=== PATIENT | female | born 1985 | race Asian ===

== ENCOUNTER → 2019-08-04 12:05 | Outpatient (CLI) | payer OTHER, SELFPAY ==
--- NOTE | 2019-08-04 12:06 | DI.US.S_ITS ---
PROCEDURE: US OB >= 14 WEEKS FETUS INDICATIONS: ANATOMY OUTSIDE/PRIOR DATING DATA: Last menstrual period (LMP): 03/13/19. LMP-based estimated date of delivery (JAIR): 12/18/19. First dating scan (date and location): 08/04/19, this study.. Estimated date of delivery (JAIR) from first dating scan: 12/21/19.. TECHNIQUE: Real-time scanning was performed of the fetus, with image documentation and biometric measurements. Endovaginal scanning: Not needed for this study. COMPARISON: None. FINDINGS: General: A single living intrauterine gestation is present. Presentation: Vertex. Placenta: Placental position is posterior, without previa. Amniotic fluid index: 11.7 cm, normal range is 5-24 cm. heart rate: 137 beats per minute. Maternal cervical canal: 4.0 cm long. Normal lower limit is 2.5 cm. biometrics: Biparietal diameter: 4.8 cm, 20 weeks 3 days Head circumference: 18.1 cm, 20 weeks 4 days Abdominal circumference: 14.5 cm, 19 weeks 6 days Femur length: 3.1 cm, 19 weeks 4 days Estimated gestational age from initial scan: not applicable. Composite gestational age from present scan: 20 weeks 1 day Estimated weight and percentile: 313 g, 12 percentile Measurement variability for biometric dating: +/- 7 days from 14 weeks to 15 weeks 6 days gestation, +/- 10 days from 16 weeks to 21 weeks 6 days gestation, +/- 2 weeks from 22 weeks to 27 weeks 6 days gestation, +/- 3 weeks for 28 weeks gestation or later. weight reference: 4500 g or EFW >90/95% is considered macrosomia or large for gestational age. EFW <10% is small for gestational age. EFW 5% or less is considered intra-uterine growth restriction. Anatomic survey: Neuro: Ventricles are non-dilated at less than 10 mm. Cisterna magna is normal at 3-11 mm. Cerebellum is normal in size and morphology. Nuchal skin fold: Normal at less than 6 mm between 14-21 weeks gestational age. Face: Nose and lips, facial profile are normal. Spine: No evidence for spina bifida. Heart: 4-chambered heart is present, with normal ventricular outflow tracts. Diaphragm: Diaphragm is intact. Stomach: Left-sided stomach is present. Kidneys: No hydronephrosis. Normal is less than 5 mm in 2nd trimester, less than 7 mm in 3rd trimester. Cord: 3-vessel cord has orthotopic insertion. Bladder: Normal in size. Extremities: All 4 extremities identified. IMPRESSION: Appropriate interval growth, no anomaly seen. The delivery date is projected to be centered on 12/21/19. Dictated by: Ziggy Prara M.D. on 08/04/2019 at 14:32 Approved by: Ziggy Parra M.D. on 08/04/2019 at 14:35
== END ==
PROVIDERS: Visit Provider Specialist
DX: Z34.02 Encounter for supervision of normal first pregnancy, second trimester (principal); Z3A.20 20 weeks gestation of pregnancy
CPT/HCPCS: 76811

== ENCOUNTER → 2019-10-01 11:42 | Outpatient (CLI) | payer OTHER, SELFPAY ==
[2019-10-01 13:25] LABS: Hemoglobin 10.3 g/dL (12.0-16.0)
[2019-10-01 13:45] LABS: GTT (PREG) 1 Hour PP 50gm Dose 96 mg/dL (76-139)
== END ==
PROVIDERS: Referring Provider Specialist; Visit Provider Specialist
DX: Z34.02 Encounter for supervision of normal first pregnancy, second trimester (principal); Z3A.25 25 weeks gestation of pregnancy
CPT/HCPCS: 36415; 82950; 85014; 85018

== ENCOUNTER → 2019-11-22 08:17 | Outpatient (CLI) | payer OTHER, SELFPAY ==
[2019-11-23 07:55] LABS: Strep Grp B PCR NEG for Grp B Strep
== END ==
PROVIDERS: Visit Provider Specialist
DX: Z34.83 Encounter for supervision of other normal pregnancy, third trimester (principal); Z3A.36 36 weeks gestation of pregnancy
CPT/HCPCS: 87653

== ENCOUNTER 2019-12-19 09:53 | Observation (INO) | payer OTHER, SELFPAY ==
--- NOTE | 2019-12-19 14:14 | P.TNLD_ITS ---
Visit Information Visit Information Date of evaluation: 12/19/19 Primary OB Provider: Salome Adams On-call OB Provider: Jo Hernandez Reason for Evaluation: Yes non-stress test Comments/Additional reasons for admission: This patient is a 34yo @40+1 presenting for evaluation for labor after losing her mucus plug and with contractions q9 minutes. The patient reports good movement and no other complaints. She has had an uncomplicated . Vital Signs Vital Signs: 104/56, HR 73 PFSH Medical History Acne (Chronic ~1999) Asthma (Chronic ~1993) Chicken pox (Resolved ~1994) History of wrist sprain (Acute) Shoulder pain (Chronic ~2015) Surgical History History of dilatation and curettage (Acute) History of removal of skin mole (Acute) [place] teeth extracted (Acute) Family History Father Cardiovascular disease Hypertension History of high blood pressure Hyperlipidemia Grandfather Cardiovascular disease Hypertension Stroke Grandmother Diabetes mellitus Mother Asthma Adopted Brother Heart murmur Asthma History of heart disease Social History marital status: unmarried,living together household members: significant other pets and animals: No education level: college occupational status: employed current occupational exposures/hazards: No special jasbir needs: No leisure activities: exercise Smoking Status: Never smoker Review of Systems Constitutional Constitutional: Reports system reviewed and no additional complaints, except as documented Cardiovascular Cardiovascular: Reports system reviewed; no additional complaints, except as documented Respiratory Respiratory: Reports system reviewed and no additional complaints, except as documented Gastrointestinal Gastrointestinal: Reports system reviewed and no additional complaints, except as documented Genitourinary Genitourinary: Reports system reviewed and no additional complaints, except as documented Neurologic Neurologic: Reports system reviewed and no additional complaints, except as documented Evaluation Evaluation Baseline heart rate: 140 Contraction Frequency (minutes): 4 Category of Tracing: I Cervical dilation (cm): 1 Cervical effacement (%): 70 station: -2 Diagnosis, Plan/Disposition Plan/Disposition Plan: Home with latent labor precautions. OB Disposition: home
== END 2019-12-19 12:15 | disposition home or self-care (01) ==
PROVIDERS: Admitting Provider Obstetrics & Gynecology; PCP General Practice; Referring Provider Obstetrics & Gynecology; Visit Provider Obstetrics & Gynecology
DX: O48.0 Post-term pregnancy (principal); Z3A.40 40 weeks gestation of pregnancy
CPT/HCPCS: 59025; 59050; G0378; G0379

== ENCOUNTER 2019-12-19 15:06 | Inpatient (IN) | payer OTHER, SELFPAY ==
--- NOTE | 2019-12-19 15:20 | P.HPOB_ITS ---
OB HPI Date/Time Date of admission: 12/19/19 Date Patient Seen: 12/19/19 Time Patient Seen: 15:30 History of Present Condition Chief complaint: EVAL OF LABOR : 2 Para: 0 Estimated Date of Delivery: 12/18/19 Estimated Gestational Age (weeks): 40 Narrative: Gwen Mixon is a 34 year old @40+1 admitted in early labor, having made change from her cervical exam this morning, now anali q2 with scant bloody show. Reports decreased movement since prior visit. Denies ALVARADO, visual changes, SOB. 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 History of Present care: good care and number of visits (16) Dating criteria: LMP confirmed by 1st trimester US Ultrasounds: normal 1st trimester US and normal mid trimester US Obstetrical complications: none Medical complications: none Preadmission Labs Blood type: A (+) positive -: Antibody screen: negative, GBS status: negative, HBsAG: negative, HIV: negative and RPR/VDLR: negative -: Chlamydia screen: not detected and Gonorrhea screen: not detected -: Rubella: immune Integrated screen: negative 1 hr GTT: 96 Prior (ies) History: 12/2015: IAB, 8 weeks, D&C, uncomplicated Evaluation Evaluation Baseline heart rate: 140 Variability: Average (6-10) monitor accelerations: Present monitor decelerations: Absent Uterine Contraction Intensity: Moderate Category of Tracing: I Cervical dilation (cm): 3 Cervical effacement (%): 100 station: -2 [facility] Medical History Acne (Chronic ~1999) Asthma (Chronic ~1993) Chicken pox (Resolved ~1994) History of wrist sprain (Acute) Shoulder pain (Chronic ~2015) Surgical History History of dilatation and curettage (Acute) History of removal of skin mole (Acute) [place] teeth extracted (Acute) Family History Father Cardiovascular disease Hypertension History of high blood pressure Hyperlipidemia Grandfather Cardiovascular disease Hypertension Stroke Grandmother Diabetes mellitus Mother Asthma Adopted Brother Heart murmur Asthma History of heart disease Social History marital status: unmarried,living together household members: significant other pets and animals: No education level: college occupational status: employed current occupational exposures/hazards: No special jasbir needs: No leisure activities: exercise Smoking Status: Never smoker Meds Home Medications and Allergies Home Medications Medication Instructions Recorded Confirmed Type albuterol sulfate 90 mcg/actuation 1 inhalation INHALATION Q4-6H PRN 06/30/19 12/17/19 History breath activated powder inhaler,sensor loratadine 10 mg tablet 10 mg PO DAILY 06/30/19 12/17/19 History ondansetron 4 mg oral soluble film 4 mg PO Q8H 06/30/19 12/17/19 History prenat.vits,mukund,vhz-gfto-cardi 1 tab PO DAILY 06/30/19 12/17/19 History Allergies Allergy/AdvReac Type Severity Reaction Status Date / Time melon Allergy Itchy Verified 11/15/19 11:42 throat dog dander AdvReac Unknown Verified 11/15/19 11:42 Review of Systems Constitutional Constitutional: Reports system reviewed and no additional complaints, except as documented Cardiovascular Cardiovascular: Reports system reviewed; no additional complaints, except as documented Respiratory Respiratory: Reports system reviewed and no additional complaints, except as documented Gastrointestinal Gastrointestinal: Reports system reviewed and no additional complaints, except as documented Genitourinary Genitourinary: Reports system reviewed and no additional complaints, except as documented Neurologic Neurologic: Reports system reviewed and no additional complaints, except as documented Exam Vital Signs (past 8 hours): 121/74, HR 85 Const General: cooperative, healthy appearing and other (laboring) Resp Effort & Inspection: normal respiratory effort Auscultation: clear to auscultation bilaterally Cardio Rate: regular rate Rhythm: regular rhythm GI Palpation: soft and No tender Skin General: no rashes or lesions noted Objective Labs Result Diagrams: 12/19/19 15:30 Assessment and Plan Assessment and Plan Assessment and Plan narrative: This patient is admitted in early labor. She has made good change since this morning, and would like her epidural as soon as possible. OB labs will be drawn and the patient will receive an IV. Monitoring as per protocol, and covid testing to be expedited. - CBC, T&S, covid testing for patient and partner - cEFM, toco - epidural when feasible
[2019-12-19 15:52] LABS: Add Manual Diff / Slide Review NO; Basophils Absolute Auto 200 /uL (0-100); Basophils Percent Auto 0.9 % (0-2); Eosinophils Absolute Auto 0 /uL (0-450); Eosinophils Percent Auto 0.2 % (2-4); Hematocrit 33.6 % (36-46); Hemoglobin 10.6 g/dL (12.0-16.0); Lymphocytes Absolute Auto 1800 /uL (1100-4500); Lymphocytes Percent Auto 8.8 % (25-40); Mean Corpuscular HGB Conc 31.5 % (30-36); Mean Corpuscular Volume 69.8 fL (80-100); Monocytes Absolute Auto 1100 /uL (0-900); Monocytes Percent Auto 5.5 % (3-14); Neutrophils Absolute Auto 17600 /uL (1500-7000); Neutrophils Percent Auto 84.6 % (50-75); Platelet Count 429 X10^3/uL (150-400); Red Blood Cell Count 4.82 X10^6/uL (4.0-5.2); Red Cell Distribution Width 19.4 % (11.6-14.8); White Blood Cell Count 20.8 X10^3/uL (4.5-11.0)
[2019-12-19 16:11] LABS: Microcytosis 2+; Polychromasia 1+
[2019-12-19 17:00] LABS: COVID19 -Nasal RAPID Negative (Negative)
[2019-12-19 19:21] VITALS: BP 127/78
[2019-12-19 19:34] VITALS: BP 126/80
[2019-12-19] MEDS: OXYTOCIN PREMIX 30 UNIT/500 ML PLAST..BAG IV (20:03)
[2019-12-20] VITALS (7 sets, daily range): BP systolic 84–98; BP diastolic 47–54; PULSE 94–104; RESP 13–23; TEMP 37.4; O2SAT 97–100
--- NOTE | 2019-12-20 00:21 | P.OP.PRE_ITS ---
Pre-operative Note COVID-19 COVID-19 status: Negative Interval Note History & Physical reviewed/Exam performed by Physician: Yes Changes to H&P: Yes H&P completed within 30 days and has changed as indicated here:: Second-stage ar rest.
--- NOTE | 2019-12-20 00:22 | P.PN_ITS ---
Subjective Subjective Date Patient Seen: 12/20/19 Time Patient Seen: 00:22 Interval history: Patient is comfortable with epidural. Patient was complete at 9:00 pm. Due to the patient's epidural and lack of feeling and how high the baby was decision was made to wait an hour prior to beginning pushing. Patient pushed for 2 hours. An internal toco was placed because contractions were difficult to monitor. Pitocin could only be increased to 4 and then occasiona lly had to be turned off because of hyperstimulation. heart tones began having decreased variability with rare decelerations. The vertex was too high to attempt vacuum or forceps and decision was made to proceed with section. Exam Vital Signs (past 8 hours): - 12/19/19 19:21 12/19/19 19:34 Blood Pressure 127/78 126/80 Narrative Exam Narrative: Complete dilation with the fetus with transverse head and no descent past -1 after 2 hours of pushing. Objective Labs Result Diagrams: 12/19/19 15:30 Labs: Laboratory Results - last 24 hr 12/19/19 12/19/19 12/19/19 15:30 15:30 16:00 WBC 20.8 H RBC 4.82 Hgb 10.6 L Hct 33.6 L MCV 69.8 L MCH 22.0 L MCHC 31.5 RDW 19.4 H Plt Count 429 H Neut % (Auto) 84.6 H Lymph % (Auto) 8.8 L [place] % (Auto) 5.5 Eos % (Auto) 0.2 L Baso % (Auto) 0.9 Neut # (Auto) 46538 H Lymph # (Auto) 1800 [place] # (Auto) 1100 H Eos # (Auto) 0 Baso # (Auto) 200 H RBC Morphology See below Polychromasia 1+ H Microcytosis 2+ H COVID-19 PCR Negative Blood Type A Positive Antibody Screen Negative 12/19/19 16:06 WBC RBC Hgb Hct MCV MCH MCHC RDW Plt Count Neut % (Auto) Lymph % (Auto) [place] % (Auto) Eos % (Auto) Baso % (Auto) Neut # (Auto) Lymph # (Auto) [place] # (Auto) Eos # (Auto) Baso # (Auto) RBC Morphology Polychromasia Microcytosis COVID-19 PCR Cancelled Blood Type Antibody Screen Assessment & Plan Assessment and plan (1) Failure to progress in second stage of labor: Current visit: Yes Status: Acute Assessment & Plan narrative: Patient with failure to progress in 2nd stage planned section. Consent form was reviewed with the patient. Risk infection, bleeding enough to require a blood transfusion damage to internal structures such as bowel, bladder, ureters discussed with patient. Questions were answered and consent form signed COVID-19 COVID-19 status: Negative Result date/Date tested (Pos, Neg/Pending): 12/19/19
[2019-12-20] MEDS: CEFAZOLIN 2 GM/100 ML FROZ.PIGGY IV (01:08)
--- NOTE | 2019-12-20 01:19 | SUR.OPER ---
Supine on Padded OR bed, head on pillow, safety belt at thigh, arms secured on padded arm boards at <90 degrees abduction. Bump under right buttock. Legs uncrossed with pillow under knees, gel pad to heels, tape over blanket to lower legs.
--- NOTE | 2019-12-20 01:30 | SUR.OPER ---
FHT 136 POST EPIDURAL DOSING, VIABLE BABY BOY BORN @0129, CORD BLOOD AND PLACENTA WITH OB RN
[2019-12-20] MEDS: LACTATED RINGERS 1,000 ML 100 ML IV ×3 (01:35→14:33)
[2019-12-20] MEDS: ACETAMINOPHEN IV 1,000 MG/100 ML VIAL 400 MG IV (01:38)
--- NOTE | 2019-12-20 02:29 | P.OP_ITS ---
Operative Date/Time/Diagnoses Date of procedure: 12/20/19 Time of procedure: 02:29 Pre-op diagnosis: Second-stage arrest Post-op diagnosis: same Procedure & Clinicians Procedure: Primary low-transverse section Same procedure as scheduled: Yes Indications: Second-stage arrest Surgeon: Salome Adams Click Yes if Unassisted: Yes Anesthesia Type: Epidural Operative Notes Findings: Normal uterus, tubes, ovaries. Viable male weighing 7 lb 14 oz with Apgars of 8 9 Closure Type: primary Specimen(s): none sent Applied: catheter (Cornejo) Estimated Blood Loss (mL): 850 Blood products transfused: none Procedure in detail: The patient was brought to the operating room where she underwent a bolus in her epidural for anesthesia. She was placed in a supine position with a left lateral tilt. A Cornejo catheter was in place. Pulsatile stockings were placed and functional throughout the case. 2 g of Ancef were given IV prior to the incision. Warming was in place. The patient was prepped and draped in usual st erile fashion. A low transverse incision was made with a scalpel and the incision was carried down to the fascial layer which was incised transversely with scissors. The midline attachments are superiorly and inferiorly. Some bleeding was controlled Bovie. The rectus muscles were in the midline and the peritoneal incision was made with no damage to internal structures. The peritoneum was incised and superiorly and inferiorly. Bladder blade was placed and a bladder flap was developed and the bladder held away from the lower uterine segment. An incision was made in the uterus with the scalpel and the incision was extended with stretching. The head was elevated out of the abdomen and with fundal pressure the baby was delivered. The infant was bulb suctioned for clear fluid and handed off to the warmer. Cord blood was collected. The placenta delivered spontaneously with traction. The uterus was cleaned with clean laps. The uterine incision was closed in 2 layers of 0 chromic suture the first a running locking layer the second an imbricating layer. There was a extension of the incision down into the right vagina that was repaired. The bladder peritoneum was repaired with 2-0 Vicryl suture. The gutters were cleaned of any remaining fluids and ovaries and tubes were observed to be normal. Adequate hemostasis was noted. The perineum was closed with 2-0 Vicryl suture. The fascia layer was closed with 0 Vicryl suture with 2 stitches. The incision was irrigated and adequate hemostasis noted. The incision was closed with interrupted 3-0 Vicryl sutures and then a subcuticular stitch of 4-0 Vicryl suture. Steri-Strips were placed. The uterus was massaged to remove any clots. The patient went to recovery room in good condition. Counts of instruments and sponges were correct. Complications: none Post-operative Condition: stable Disposition: other ( Center) Plan for aftercare: Routine post section
--- NOTE | 2019-12-20 03:10 | SUR.PHASEI ---
0303 to room 1, bed down and locked, call light within reach, 2 receiving RNs, baby, and dad present. SCDs on. Pt awake, oriented, tolerated juice well. Denies dizziness/lightheadedness throughout PACU stay. Skin warm and dry, resp unlabored, pleasant, denies pain/nausea. Stable.
[2019-12-20] MEDS: DOCUSATE 250 MG CAPSULE PO (08:28)
[2019-12-20] MEDS: FERROUS GLUCONATE 324 MG TABLET PO (08:28)
[2019-12-20] MEDS: KETOROLAC 30 MG/ML VIAL IV ×3 (08:28→21:30)
--- NOTE | 2019-12-20 10:34 | PM.OBPN.1 ---
Subjective - OB <Jo Hernandez MD - Last Filed: 12/21/19 11:05> Subjective Patient comments: no complaints, pain well controlled and tolerating diet baby status: doing well feeding status: exclusively breast feeding Narrative: This patient is a 34yo P1 POD#0 s/p early AM pCS for second stage arrest. She is meeting postoperative goals appropriately given the recent CS, tolerating PO, with good pain control and moderate lochia. Patient reports feeling well with no other complaints obstetrical or otherwise. Date Patient Seen: 12/20/19 Time Patient Seen: 10:00 Exam <Jo Hernandez MD - Last Filed: 12/21/19 11:05> Vital Signs (past 8 hours): - 12/20/19 02:35 12/20/19 02:40 12/20/19 02:45 Pulse Rate 96 H 100 H 94 H Respiratory Rate 21 21 20 Blood Pressure 86/51 L 84/49 L 86/49 L Pulse Oximetry 98 97 97 12/20/19 02:50 12/20/19 02:55 Pulse Rate 98 H 98 H Respiratory Rate 23 13 Blood Pressure 91/47 L 92/47 L Pulse Oximetry 97 97 Oxygen Delivery Method Room Air Const General: cooperative, healthy appearing and comfortable Orientation: alert, awake and oriented x3 Resp Effort & Inspection: normal respiratory effort Auscultation: clear to auscultation bilaterally Cardio Rate: regular rate Rhythm: regular rhythm GI Palpation: soft and No tender Other: fundus firm, well below u. Aquacell dressing present with scant old blood, incision otherwise c/d/i. Skin General: no rashes or lesions noted Objective <Jo Hernandez MD - Last Filed: 12/21/19 11:05> Labs Result Diagrams: 12/19/19 15:30 Labs: Laboratory Results - last 24 hr 12/19/19 12/19/19 12/19/19 15:30 15:30 16:00 WBC 20.8 H RBC 4.82 Hgb 10.6 L Hct 33.6 L MCV 69.8 L MCH 22.0 L MCHC 31.5 RDW 19.4 H Plt Count 429 H Neut % (Auto) 84.6 H Lymph % (Auto) 8.8 L [place] % (Auto) 5.5 Eos % (Auto) 0.2 L Baso % (Auto) 0.9 Neut # (Auto) 56894 H Lymph # (Auto) 1800 [place] # (Auto) 1100 H Eos # (Auto) 0 Baso # (Auto) 200 H RBC Morphology See below Polychromasia 1+ H Microcytosis 2+ H COVID-19 PCR Negative Blood Type A Positive Antibody Screen Negative 12/19/19 16:06 WBC RBC Hgb Hct MCV MCH MCHC RDW Plt Count Neut % (Auto) Lymph % (Auto) [place] % (Auto) Eos % (Auto) Baso % (Auto) Neut # (Auto) Lymph # (Auto) [place] # (Auto) Eos # (Auto) Baso # (Auto) RBC Morphology Polychromasia Microcytosis COVID-19 PCR Cancelled Blood Type Antibody Screen Assessment & Plan <Jo Hernandez MD - Last Filed: 12/21/19 11:05> Assessment and Plan (1) Failure to progress in second stage of labor: Status: Acute Current Visit: Yes Plan day: 0 plan OB: routine postop care Comments: This patient is doing well, meeting postoperative goals appropriately. Plan is for voiding trial and ambulation later this afternoon. Routine postoperative care. CBC pending. Time Spent With Patient Time: Total time spent is greater than 50% in coordination of care (as documented) at patient's floor/unit and/or counseling patient: Time with patient: 25 - 35 minutes
[2019-12-21] MEDS: IBUPROFEN 600 MG TABLET PO ×2 (03:38→11:46)
[2019-12-21] MEDS: FERROUS GLUCONATE 324 MG TABLET PO (08:47)
[2019-12-21] MEDS: DOCUSATE 250 MG CAPSULE PO (08:47)
--- NOTE | 2019-12-21 10:57 | PM.OBDS.1 ---
Discharge Providers Provider Date of admission: 12/19/19 15:06 Discharge Date: 12/21/19 Primary care physician: Jon Jaime MD Consults: 12/19/19 17:10 Consult to Anesthesiology Urgent Comment: Consulting Provider: Anesthesiologist Reason for consultation: Epidural Has provider been notified: No 12/20/19 07:39 Consult to Rail Switchman Routine Comment: Discharge provider: Salome Adams MD Summary Hospital Course Date Patient Seen: 12/21/19 Time Patient Seen: 10:59 Procedures: Pitocin augmentation of labor, epidural catheter, primary low-transverse section Hospital Course: Patient arrived on Labor and delivery in active labor. She received an epidural catheter for pain control. She had Pitocin started to augment her labor. She had a 2nd stage arrest and was delivered by primary low-transverse section. Patient is ambulatory. She is passing gas. She is tolerating the pain with just Motrin. She is still trying to breast feed. She is awaiting consult with the beverage sales consultant. She denies headaches, scotomata, epigastric pain. Peripartum Data Delivery Method: Section (Second-stage arrest) Procedures: Epidural catheter, Pitocin augmentation of labor, primary low-transverse section complications: none Corinne 1: Gender: Male Disposition of : home Discharge Diagnosis (1) Failure to progress in second stage of labor: Status: Acute (2) Delivery by section: Status: Acute (3) Acute blood loss anemia: Status: Acute Status at Discharge Cognitive/behavioral status at discharge: oriented Functional status at discharge: independent ambulation Overall status at discharge: patient is progressing back to baseline Time Spent with Patient Time attestation: Total time spent providing and/or coordinating discharge services: Time spent: Less than 30 minutes Objective Labs Result Diagrams: 12/19/19 15:30 Exam Vital Signs (past 8 hours): Blood pressure 105/64, pulse of 93, temperature 98.6? Oxygen Delivery Method Room Air Narrative Exam Narrative: Abdomen is soft, nontender. Uterus is firm, at U, appropriately tender. Dressing is clean, dry, intact. Normal lochia. Extremities with trace edema and nontender. Patient's blood type is A positive, she is rubella immune, she received Tdap in 3rd trimester. Discharge Plan Discharge Plan Patient Disposition: Home Discharge orders & Medications Prescriptions: New ibuprofen 600 mg Tablet 600 mg PO Q6HR PRN (Reason: Fever/Mild Pain (1-3)) Qty: 30 RF: 0 docusate sodium 250 mg Capsule 250 mg PO DAILY Qty: 20 RF: 0 ferrous gluconate 324 mg (38 mg iron) Tablet 324 mg PO DAILY Qty: 30 RF: 0 oxycodone-acetaminophen [Percocet] 5-325 mg tablet 2 tab PO Q4-6H PRN (Reason: pain) Qty: 20 RF: 0 Continued prenat.vits,mukund,eey-ycwc-amgjw Tablet 1 tab PO DAILY RF: 0 albuterol sulfate 90 mcg/actuation aero powdr breath act w/sensor 1 inhalation INHALATION Q4-6H PRNRF: 0 loratadine [Claritin] 10 mg tablet 10 mg PO DAILY RF: 0 Discontinued ondansetron 4 mg film 4 mg PO Q8H RF: 0 Follow up/Referrals: Jon Jaime MD [Primary Care Provider] - Salome Adams MD [Physician] - 1 Week (Aquacel removal) Diet/Activity/Treatments Diet: Regular Activity: Nothing in vagina and do not lift over 20 lb for 6 weeks Skin/Wound/Dressing Care Report to your healthcare provider any signs of infection, such as:: chills, fever, increased pain and unusual redness Dressing: Leave dressing on until one-week appointment Discharge Data Primary Care Provider: Jon Jaime
[2019-12-21 12:41] VITALS: BP 92/47; PULSE 98; RESP 13; TEMP 37.4
== END 2019-12-21 15:00 | disposition home or self-care (01) | DRG 787 ==
PROVIDERS: Specialist; Admitting Provider Obstetrics & Gynecology; PCP General Practice; Referring Provider Obstetrics & Gynecology; Visit Provider Obstetrics & Gynecology
PROC: 10D00Z1 Extraction of Products of Conception, Low, Open Approach (ICD-10-PCS; CPT 59514; principal; 2019-12-20 00:45)
DX: O62.1 Secondary uterine inertia (principal); D62 Acute posthemorrhagic anemia; D64.9 Anemia, unspecified; O64.8XX0 Obstructed labor due to other malposition and malpresentation, not applicable or unspecified; Z3A.40 40 weeks gestation of pregnancy; Z37.0 Single live birth; J45.909 Unspecified asthma, uncomplicated; Z11.59 Encounter for screening for other viral diseases
CPT/HCPCS: 01967; 01968; 59025; 59050; 59510; 85025; 86850; 86900; 86901; 87635; G0378; G0379; J0131; J0690; J1885; J2274; J2590